=== PATIENT | male | born 1980 ===

== ENCOUNTER 2023-01-05 11:13 | Emergency (ER) | payer BC ==
[2023-01-05 11:38] VITALS: BP 137/87; PULSE 66; RESP 18; TEMP 98.7; BMI 28.7
[2023-01-05] MEDS ORDERED: LIDOCAINE 5% TOPICAL PATCH TP ONE (11:59)
[2023-01-05] MEDS ORDERED: ACETAMINOPHEN 500 MG TABLET (FP) PO ONE (11:59)
[2023-01-05] MEDS ORDERED: METHOCARBAMOL 500 MG TABLET PO ONE (12:00)
[2023-01-05] MEDS ORDERED: ACETAMINOPHEN 500 MG TABLET (FP) ONE (12:20)
[2023-01-05] MEDS ORDERED: LIDOCAINE 5% TOPICAL PATCH ONE (12:21)
[2023-01-05] MEDS ORDERED: METHOCARBAMOL 500 MG TABLET ONE (12:21)
[2023-01-05] MEDS ORDERED: LIDOCAINE PATCH REMOVAL MC SCH (22:00)
== END 2023-01-05 12:58 | disposition home or self-care (01) ==
LOC: FER 11:13
DX: M25.512 Pain in left shoulder (principal); M54.2 Cervicalgia; M54.6 Pain in thoracic spine
CPT/HCPCS: 73030-TC-LT-FY; 99283-25